=== PATIENT | female | born 1995 | race Caucasian/White ===

== ENCOUNTER 2016-09-02 17:31 | Emergency (ER) | payer BC ==
[2016-09-02 18:16] VITALS: BP 99/70
--- NOTE | 2016-09-02 18:52 | UC ---
Throat Pain/Nasal Jason HPI - HPI Summary HPI Summary: ONE WEEK OF MILD ABDOMINAL (EPIGASTRIC DISCOMFORT); THREE DAYS OF WORSENING SORE THROAT, FEVER, CHILLS, FATIGUE, WEAKNESS, MUSCLE ACHES. 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 Hx Last Menstrual Period: 08/20/16 Onset/Duration: Gradual Onset, Lasting Weeks, Worse Since - FOUR DAYS Severity: Moderate Cough: None Associated Signs & Symptoms: Positive: Hoarseness, Fever - Epiglottits Risk Factors Epiglottis Risk Factors: Negative - Allergies/Home Medications Allergies/Adverse Reactions: Allergies Allergy/AdvReac Type Severity Reaction Status Date / Time No Known Allergies Allergy Verified 09/02/16 17:55 Home Medications: Home Medications FLUoxetine CAP* [PROzac CAP*] 10 mg PO DAILY 09/02/16 [History Confirmed ] PMH/Surg Hx/FS Hx/Imm Hx Previously Healthy: Yes - Surgical History Surgical History: Yes Surgery Procedure, Year, and Place: RIGHT foot 2010 - Family History Known Family History: Negative: Respiratory Disease - Social History Occupation: Employed Part-time, Student Lives: With Family Alcohol Use: Rare Substance Use Type: None Smoking Status (MU): Never Smoked Tobacco - Immunization History Most Recent Influenza Vaccination: NONE Most Recent Tetanus Shot: UTD Most Recent Pneumonia Vaccination: NONE Review of Systems Constitutional: Fever, Chills, Fatigue Skin: Negative Eyes: Negative ENT: Sore Throat Respiratory: Negative Cardiovascular: Negative Gastrointestinal: Abdominal Pain - MILD EPIGASTRIC Genitourinary: Negative Motor: Negative Neurovascular: Negative Musculoskeletal: Negative Neurological: Negative Psychological: Negative All Other Systems Reviewed And Are Negative: Yes Physical Exam Triage Information Reviewed: Yes Appearance: Well-Appearing, No Pain Distress, Well-Nourished Vital Signs: Initial Vital Signs Temp 99 F 09/02/16 17:57 Pulse 104 09/02/16 17:57 Resp 18 09/02/16 17:57 BP 99/70 09/02/16 17:57 Pulse Ox 100 09/02/16 17:57 Vital Signs Reviewed: Yes Eye Exam: Normal ENT: Positive: Hearing grossly normal, Pharyngeal erythema, TMs normal, Tonsillar swelling, Tonsillar exudate Dental Exam: Normal Neck exam: Normal Neck: Positive: Supple, Tenderness @ - MILD TENDERNESS ANT CERVICAL LN BILATERALLY, Enlarged Nodes @ - ANT CERVICAL. Negative: Nuchal Rigidity - NEGATIVE KERNIGS Respiratory Exam: Normal Respiratory: Positive: Chest non-tender, Lungs clear, Normal breath sounds, No respiratory distress, No accessory muscle use Cardiovascular Exam: Normal Cardiovascular: Positive: RRR, No Murmur Abdomen Description: Positive: Soft, Bruit. Negative: Nontender - MILD EPIGASTRIC DISCOMFORT WITH PALPATION, CVA Tenderness (R), CVA Tenderness (L), Hepatomegaly, McBurney's Point Tenderness, Splenomegaly Bowel Sounds: Positive: Present Musculoskeletal Exam: Normal Neurological Exam: Normal Psychological Exam: Normal Skin Exam: Normal Throat Pain/Nasal Course/Dx - Differential Dx/Diagnosis Differential Diagnosis/HQI/PQRI: Influenza, Mononucleosis, Tonsillitis, URI Provider Diagnoses: TONSILLITIS ; VIRAL SYNDROME Discharge - Discharge Plan Condition: Stable Disposition: HOME Patient Education Materials: Mononucleosis (ED), Tonsillitis (ED) Forms: *Work Release Referrals: Amber Shannon MD [Primary Care Provider] -
[2016-09-02] MEDS ORDERED: Ondansetron ODT TAB* 4 MG PO ONE (19:13)
[2016-09-03 11:26] LABS: EBV Response NO
[2016-09-03 11:38] LABS: Hematocrit 41 % (35-47); Hemoglobin 13.5 g/dl (12.0-16.0); Mean Corpuscular HGB Conc 33 g/dl (31-36); Mean Corpuscular Hemoglobin 30 pg (27-31); Mean Corpuscular Volume 92 fL (80-97); Mean Platelet Volume 10 um3 (7.4-10.4); Red Blood Count 4.49 10^6/ul (4.0-5.4); Red Cell Distribution Width 14 % (10.5-15); White Blood Count 13.4 10^3/ul (3.5-10.8)
[2016-09-03 12:03] LABS: Mono Internal Control QC Line Present
[2016-09-03 12:04] LABS: Manual Entry Verification GRE0060
--- NOTE | 2016-09-03 18:02 | UC ---
Progress - Progress Note Progress Note: Notify pt WBCs elevated MONO negative should f/u with Dr. Shannon as directed to ER for new or worsening symptoms
== END 2016-09-02 19:20 | disposition home or self-care (01) ==
LOC: UCCORT 17:31
DX: J03.90 Acute tonsillitis, unspecified (principal); B34.9 Viral infection, unspecified; Z32.02 Encounter for pregnancy test, result negative
CPT/HCPCS: 36415; 81003; 84702; 85025; 86308; 87651; 99212; A9270-GY; G0463